=== PATIENT | female | born 1990 | race Caucasian/White ===

== ENCOUNTER 2018-04-20 14:06 | Inpatient (IN) | payer OTHER ==
[~2018-04-20] VITALS: Ht 162.6 cm; Wt 123.9 kg
--- NOTE | ~2018-04-20 | EKG ---
[place], [place] ELECTROCARDIOGRAM REPORT NAME: LUCIA BETHEA UNIT #: [id number] ROOM: 404 DOCTOR: LUISANA DUENAS MD,ALEJANDRO BIRTHDATE: [birth year] DOS: 04/20/2018 TIME: 02:34 p.m. The electrocardiogram shows evidence of sinus tachycardia. The patient has a heart rate of 107 beats per minute. ALEJANDRO LIEBERMAN MD CM:EKGRPT:ELECTROCARDIOGRAM REPORT [id number] ALEJANDRO DUENAS MD
--- NOTE | ~2018-04-20 | CON ---
[place], [place] REPORT OF CONSULTATION NAME: LUCIA BETHEA UNIT #: [id number] ROOM: 404 DOCTOR: ALEJANDRO ROSE MD BIRTHDATE: [birth year] DOS: 04/21/2018 REASON FOR CONSULTATION: Acute abnormal respiratory symptoms. HISTORY OF PRESENT ILLNESS: This is a 27-year-old white female who has been admitted to the hospital on 04/20/2018 with symptoms of shortness of breath with severe cough. The patient has been noted progressive for cough and shortness of breath, but the cough has been described to be white, rather sputum expectoration whitish in color. The patient also complaining of tightness in the chest and wheezing as well. She went to the [facility] for assessment. As the patient was assessed, she was noted with oxygen desaturation hypoxic, sent to the Emergency Room for further medical management. The patient denies any symptoms of chest pain at the present time. The symptoms of shortness of breath and cough has been improving. She was assessed in the Emergency Room, underwent a CT of the chest as well. REVIEW OF SYSTEMS: CONSTITUTIONAL: She does complain of symptoms of fatigue and tiredness. Denies symptoms of fever or chills. EYES: Denies burning, redness, or tenderness. EARS, NOSE, THROAT SYMPTOMS: Denies sore throat, hoarseness, otalgia, postnasal drainage or epistaxis. CARDIOVASCULAR: No angina pain, edema, pain in the lower extremity. GASTROINTESTINAL: Dysphagia, nausea, vomiting, diarrhea, abdominal pain, hematemesis, melena, or hematochezia. GENITOURINARY: No dysuria, suprapubic pain, hematuria. MUSCULOSKELETAL: Denies any symptoms of pain in any joint redness or tenderness. CENTRAL NERVOUS SYSTEM: No dizziness, headache, diplopia, syncopal episodes. Remaining systems were reviewed with the patient, they were noted all negative. PAST MEDICAL HISTORY: 1. The patient was known with past history of tobacco use with recent tobacco cessation. 2. Obesity. 3. History of gastroesophageal reflux. PAST SURGICAL HISTORY: 1. Cleft palate repair. 2. Cholecystectomy. SOCIAL HISTORY: The patient is single, does not have any children. Smoking was noted since early teens half a pack of cigarettes per day, discontinued in 03/2018. FAMILY HISTORY: Father is living, 52 years old, history of diabetes. Mother is 49 years old without any known medical illnesses. HOME MEDICATIONS: None reported. [place], [place] REPORT OF CONSULTATION NAME: LUCIA BETHEA UNIT #: [id number] ROOM: [facility] DOCTOR: ALEJANDRO ROSE MD BIRTHDATE: [birth year] DRUG ALLERGIES: Noted with no known drug allergies. PHYSICAL EXAMINATION: GENERAL: A 27-year-old female who has been currently noted sitting on the bed without any acute distress. Height of 5 feet 4 inches, weight of 273 pounds, BMI 46.6. VITAL SIGNS: Normal temperature, respiratory rate 14-24, heart rate of 123-82 with sinus tachycardia, blood pressure 117/66, 122/85. Intake 2850, output 1000 mL. Pulse ox saturation on room air was 89% saturation on 3 liters nasal cannula 90-91% saturation. HEAD, EYES, EARS, NOSE, AND THROAT: Chronic obesity. Head was atraumatic. Eyes nonicterus. NECK: Supple. CARDIOVASCULAR: S1, S2 is audible. LUNGS: The patient was noted with moderate decreased breath sounds in the lungs bilaterally. No wheezing, no crackles. ABDOMEN: Soft, significantly obese. Bowel sounds present. EXTREMITIES: The patient noted without acute edema, clubbing or cyanosis. SKIN: Visible skin. No lesions or rashes. CENTRAL NERVOUS SYSTEM: Cranial nerves 2-12 intact. MUSCULOSKELETAL: The patient was noted without any acute deformities. LABORATORY DATA: CT of the chest that was done yesterday personally reviewed, does not show evidence of pulmonary embolism, abnormal lymphadenopathy. The patient noted with moderate-sized ground glass area opacity which is present in the left lower lobe in the medial subsegment. There was also noted with a small patchy ground glass opacities, which are present in the right lower lobe, procedure subsegment as well as in the right middle lobe as well. There were no large area of consolidation. IMPRESSION: 1. The patient will be currently admitted to the hospital, it was noted most likely acute viral syndrome resulting in new onset of acute exacerbation of bronchial asthma and chronic obstructive pulmonary disease. 2. Acute hypoxic respiratory secondary to above. 3. History of chronic obesity as well. PLAN OF MANAGEMENT: The patient would be continued on the bronchodilators, oxygen supplementation and the corticosteroids, the dose of corticosteroids will be decreased. The current ground glass opacity need to be monitored as an outpatient followup CT scan in about 4-6 weeks to document the resolution. Ordered the respiratory viral panel as well for the nasopharyngeal swab. Sputum for Gram stain culture will be done. The patient able to produce sputum. Other plan of management and care plan to be continued. Usual care with additional treatment changes to be made based on the progression of the illness. Dose of Solu-Medrol will be gradually decreased as well. Thanks for allowing me to participate in the care of this patient. [place], [place] REPORT OF CONSULTATION NAME: LUCIA BETHEA UNIT #: [id number] ROOM: 404 DOCTOR: ALEJANDRO ROSE MD BIRTHDATE: [birth year] ALEJANDRO LIEBERMAN MD CM:CONSTR:REPORT OF CONSULTATION 1103 04/21/18 1606 interface
--- NOTE | ~2018-04-20 | PR ---
[place], [place] PROGRESS NOTE NAME: LUCIA BETHEA UNIT #: [id number] ROOM: 404 DOCTOR: LUISANA DUENAS MD,ALEJANDRO BIRTHDATE: [birth year] DOS: 04/22/2018 SUBJECTIVE: The patient was noted comfortable at this time. Reduction in shortness of breath symptoms were reported as symptoms of chest pain, hemoptysis, shortness breath, cough and wheezing was all resolving progressively. OBJECTIVE: VITAL SIGNS: Normal temperature, respiratory rate 18, heart rate 56-76, blood pressure 146/66. Pulse oxygen saturation on room air 92% saturation. HEENT: Head was atraumatic. Eyes nonicterus. NECK: Supple. CARDIOVASCULAR: S1, S2 audible. LUNGS: Moderate decreased breath sounds noted in the lungs bilaterally. ABDOMEN: Soft and obese. EXTREMITIES: Without any acute edema. LABORATORY DATA: CBC: WBC count 21.2. Hemoglobin, hematocrit and platelet count was normal. BMP: Glucose 129, BUN and creatinine was normal. IMPRESSION: 1. The patient has been noted currently stable at the present time with progressive resolution of the current acute bronchitis, which would be considered asthmatic bronchitis. 2. Acute hypoxic respiratory failure as well, that has improved markedly. PLAN OF MANAGEMENT: Consideration for home discharge from the pulmonary standpoint on oral antibiotic, tapering prednisone and bronchodilators with further outpatient assessment to be done for the current ground glass opacities in the lungs until resolution. ALEJANDRO LIEBERMAN MD CM:PNTRANS [id number] ALEJANDRO DUENAS MD 04/28/18 0744 interface
[~2018-04-20 14:06] MED LIST: KEFLEX500 M1 PO; ORTHO TRI-CYCLE1 TA2 PO
[2018-04-20 14:07] VITALS: BP 152/82
[2018-04-20 15:11] VITALS: BP 122/85
[2018-04-20 15:19] LABS: BASO % 0.2 % (0.0-1.0); EOS # 0.4 10*3/uL (0.0-0.4); EOS % 2.6 % (1.0-4.0); HEMATOCRIT 42.8 % (37.0-47.0); HEMOGLOBIN 14.3 g/dl (12.0-16.0); LYMPH # 1.9 10*3/uL (1.3-4.4); LYMPH % 11.8 % (27.0-41.0); MEAN CELL VOLUME 86.3 fl (81.0-99.0); MEAN CORPUSCULAR HGB 28.8 pg (27.0-31.0); MEAN CORPUSCULAR HGB CONC 33.4 g/dl (33.0-37.0); MEAN PLATELET VOLUME 9.9 fl (9.6-12.3); MONO # 0.9 10*3/uL (0.1-1.0); MONO % 5.4 % (3.0-9.0); NEUT # 12.9 10*3/uL (2.3-7.9); NEUT % 79.6 % (47.0-73.0); PLATELET COUNT AUTOMATED 321 10*3/uL (130-400); RED BLOOD COUNT 4.96 10*6/uL (4.10-5.10); RED CELL DISTRI WIDTH 12.4 % (0-14.5); WHITE BLOOD COUNT 16.3 10*3/uL (4.8-10.8)
[2018-04-20 15:29] LABS: ACT PARTIAL THROMBO TIME 27.2 SECONDS (20.8-31.5)
[2018-04-20 15:35] LABS: ALBUMIN 4.1 gm/dl (3.1-4.5); ALKALINE PHOSPHATASE 71 U/L (45-117); BUN 9 mg/dl (7-24); CHLORIDE 106 mmol/L (98-107); CREATININE 0.91 mg/dL (0.55-1.02); LIPASE 124 U/L (73-393); POTASSIUM 3.8 mmol/L (3.5-5.1); SGOT/AST 22 IU/L (3-35); SGPT/ALT 26 U/L (12-78); SODIUM 139 mmol/L (136-145)
[2018-04-20 15:37] VITALS: BP 124/72
[2018-04-20 15:44] LABS: TROPONIN I < 0.015 ng/ml (<0.045)
[2018-04-20 17:47] VITALS: BP 128/72
[2018-04-20 19:17] VITALS: BP 122/71
[2018-04-20 19:50] VITALS: BP 121/69
[2018-04-21] VITALS: BP 117/66
[2018-04-21 06:32] LABS: BASO % 0.2 % (0.0-1.0); HEMATOCRIT 40.4 % (37.0-47.0); HEMOGLOBIN 13.3 g/dl (12.0-16.0); LYMPH # 1.3 10*3/uL (1.3-4.4); MEAN CELL VOLUME 87.8 fl (81.0-99.0); MEAN CORPUSCULAR HGB 28.9 pg (27.0-31.0); MEAN CORPUSCULAR HGB CONC 32.9 g/dl (33.0-37.0); MEAN PLATELET VOLUME 10.1 fl (9.6-12.3); MONO # 0.3 10*3/uL (0.1-1.0); MONO % 2.6 % (3.0-9.0); NEUT # 11.1 10*3/uL (2.3-7.9); NEUT % 86.5 % (47.0-73.0); PLATELET COUNT AUTOMATED 302 10*3/uL (130-400); RED CELL DISTRI WIDTH 12.6 % (0-14.5); WHITE BLOOD COUNT 12.8 10*3/uL (4.8-10.8)
[2018-04-21 06:50] LABS: ALBUMIN 3.5 gm/dl (3.1-4.5); BUN 8 mg/dl (7-24); CHLORIDE 109 mmol/L (98-107); CHOLESTEROL 152 mg/dL (<200); CREATININE 0.72 mg/dL (0.55-1.02); PHOSPHOROUS 2.6 mg/dL (2.5-4.9); POTASSIUM 3.8 mmol/L (3.5-5.1); SGOT/AST 20 IU/L (3-35); SGPT/ALT 25 U/L (12-78); SODIUM 140 mmol/L (136-145)
[2018-04-21 06:58] LABS: ALKALINE PHOSPHATASE 59 U/L (45-117); HDL CHOLESTEROL 42 mg/dl (40-60); LDL CHOLESTEROL 96 mg/dL (9-159); THYROID STIM HORMONE (HS) 0.313 uIU/ml (0.358-4.75); TOTAL PROTEIN 7.3 gm/dL (6.4-8.2); TRIGLYCERIDES 71 mg/dl (<150); VLDL CHOLESTEROL 14 mg/dL (6-40)
[2018-04-21 07:39] LABS: VITAMIN D, 25-HYDROXY 15.7 ng/mL (30-100)
[2018-04-21 08:00] VITALS: BP 138/55
[2018-04-21 12:00] VITALS: BP 132/54
[2018-04-21 16:00] VITALS: BP 107/65
[2018-04-21 20:00] VITALS: BP 110/44
[2018-04-22 00:09] VITALS: BP 105/45
[2018-04-22 07:48] LABS: BASO % 0.2 % (0.0-1.0); HEMATOCRIT 41.6 % (37.0-47.0); HEMOGLOBIN 13.5 g/dl (12.0-16.0); LYMPH # 2.8 10*3/uL (1.3-4.4); LYMPH % 13.1 % (27.0-41.0); MEAN CELL VOLUME 89.1 fl (81.0-99.0); MEAN CORPUSCULAR HGB 28.9 pg (27.0-31.0); MEAN CORPUSCULAR HGB CONC 32.5 g/dl (33.0-37.0); MEAN PLATELET VOLUME 10.3 fl (9.6-12.3); MONO # 1.1 10*3/uL (0.1-1.0); MONO % 5.2 % (3.0-9.0); NEUT # 17.1 10*3/uL (2.3-7.9); NEUT % 80.7 % (47.0-73.0); PLATELET COUNT AUTOMATED 365 10*3/uL (130-400); RED BLOOD COUNT 4.67 10*6/uL (4.10-5.10); RED CELL DISTRI WIDTH 12.9 % (0-14.5); WHITE BLOOD COUNT 21.2 10*3/uL (4.8-10.8)
[2018-04-22 07:59] LABS: BUN 12 mg/dl (7-24); CHLORIDE 107 mmol/L (98-107); CREATININE 1.02 mg/dL (0.55-1.02); PHOSPHOROUS 3.4 mg/dL (2.5-4.9); POTASSIUM 3.7 mmol/L (3.5-5.1); SODIUM 141 mmol/L (136-145)
[2018-04-22 08:00] VITALS: BP 146/66
[2018-04-22 12:00] VITALS: BP 121/61
[2018-04-22] MEDS ORDERED: LEVAQUIN500 M2 PO (14:17)
[2018-04-22] MEDS ORDERED: PREDNISONE10 MG PO (14:17)
[2018-04-22] MEDS ORDERED: VITAMIN D-32000 UNI1 PO (14:20)
[2018-04-24 00:07] LABS: ADENOVIRUS Negative (Negative); INFLUENZA A Negative (Negative); INFLUENZA B Negative (Negative); METAPNEUMOVIRUS Negative (Negative); PARAINFLUENZA 1 Negative (Negative); PARAINFLUENZA 2 Negative (Negative); PARAINFLUENZA 3 Negative (Negative); RHINOVIRUS Negative (Negative); RSV A Negative (Negative); RSV B Negative (Negative)
== END 2018-04-22 15:27 | disposition home or self-care (01) | DRG 871 ==
LOC: ED 14:06 → EDHOLD 18:50 → 4E 18:50
PROVIDERS: Internal Medicine; Internal Medicine Critical Care Medicine; Nurse Practitioner Family
DX: A41.9 Sepsis, unspecified organism (principal); J18.9 Pneumonia, unspecified organism; J96.01 Acute respiratory failure with hypoxia; E66.01 Morbid (severe) obesity due to excess calories; J45.901 Unspecified asthma with (acute) exacerbation; Z68.42 Body mass index [BMI] 45.0-49.9, adult; R03.0 Elevated blood-pressure reading, without diagnosis of hypertension; R79.82 Elevated C-reactive protein (CRP); K21.9 Gastro-esophageal reflux disease without esophagitis; F17.210 Nicotine dependence, cigarettes, uncomplicated; J20.9 Acute bronchitis, unspecified; E55.9 Vitamin D deficiency, unspecified; J44.9 Chronic obstructive pulmonary disease, unspecified; Z79.899 Other long term (current) drug therapy; Z90.49 Acquired absence of other specified parts of digestive tract; Z83.3 Family history of diabetes mellitus

== ENCOUNTER 2018-07-19 14:12 | Emergency (ER) | payer SELFPAY ==
[~2018-07-19] VITALS: Ht 162.5 cm; Wt 122.5 kg
[~2018-07-19 14:12] MED LIST changes: +LEVAQUIN500 M2 PO; +PREDNISONE10 MG PO; +VITAMIN D-32000 UNI1 PO
[2018-07-19] MEDS ORDERED: BENADRYL25 M2 PO (15:27)
== END 2018-07-19 17:53 | disposition home or self-care (01) ==
LOC: ED 14:12
DX: T78.1XXA Other adverse food reactions, not elsewhere classified, initial encounter (principal); R11.0 Nausea; Z87.891 Personal history of nicotine dependence; X58.XXXA Exposure to other specified factors, initial encounter

== ENCOUNTER 2018-08-14 11:43 | Emergency (ER) | payer SELFPAY ==
[~2018-08-14] VITALS: Ht 162.5 cm; Wt 122.5 kg
[~2018-08-14 11:43] MED LIST changes: +BENADRYL25 M2 PO
[2018-08-14 12:09] LABS: BASO # 0.1 10*3/uL (0.0-0.1); BASO % 0.8 % (0.0-1.0); EOS # 0.6 10*3/uL (0.0-0.4); HEMATOCRIT 41.6 % (37.0-47.0); HEMOGLOBIN 14.4 g/dl (12.0-16.0); LYMPH # 1.9 10*3/uL (1.3-4.4); LYMPH % 18.6 % (27.0-41.0); MEAN CORPUSCULAR HGB 29.1 pg (27.0-31.0); MEAN CORPUSCULAR HGB CONC 34.6 g/dl (33.0-37.0); MEAN PLATELET VOLUME 10.2 fl (9.6-12.3); MONO # 0.7 10*3/uL (0.1-1.0); MONO % 6.8 % (3.0-9.0); NEUT % 67.6 % (47.0-73.0); PLATELET COUNT AUTOMATED 376 10*3/uL (130-400); RED BLOOD COUNT 4.95 10*6/uL (4.10-5.10); RED CELL DISTRI WIDTH 12.9 % (0-14.5); WHITE BLOOD COUNT 10.4 10*3/uL (4.8-10.8)
[2018-08-14 12:23] LABS: ALBUMIN 3.8 gm/dl (3.1-4.5); ALKALINE PHOSPHATASE 76 U/L (45-117); BUN 6 mg/dl (7-24); CHLORIDE 106 mmol/L (98-107); POTASSIUM 3.4 mmol/L (3.5-5.1); SGOT/AST 16 IU/L (3-35); SGPT/ALT 25 U/L (12-78); SODIUM 141 mmol/L (136-145); TOTAL PROTEIN 7.8 gm/dL (6.4-8.2)
[2018-08-14] MEDS ORDERED: PROAIR HFA8.5 GM INH (13:26)
[2018-08-14] MEDS ORDERED: PREDNISONE10 MG PO (13:26)
[2018-08-14] MEDS ORDERED: LEVAQUIN750 M1 PO (13:26)
== END 2018-08-14 13:30 | disposition home or self-care (01) ==
LOC: ED 11:43
PROVIDERS: Nurse Practitioner Family
DX: J18.9 Pneumonia, unspecified organism (principal); K21.9 Gastro-esophageal reflux disease without esophagitis; E66.9 Obesity, unspecified; Z90.49 Acquired absence of other specified parts of digestive tract; Z87.891 Personal history of nicotine dependence

== ENCOUNTER 2019-12-18 17:02 | Emergency (ER) | payer OTHER ==
[~2019-12-18] VITALS: Ht 162.5 cm; Wt 90.7 kg
[~2019-12-18 17:02] MED LIST changes: +LEVAQUIN750 M1 PO; +PROAIR HFA8.5 GM INH
== END 2019-12-18 18:06 | disposition home or self-care (01) ==
LOC: ED 17:02
DX: S05.01XA Injury of conjunctiva and corneal abrasion without foreign body, right eye, initial encounter (principal); F17.200 Nicotine dependence, unspecified, uncomplicated; Z79.899 Other long term (current) drug therapy; W22.8XXA Striking against or struck by other objects, initial encounter; Y93.89 Activity, other specified; Y92.89 Other specified places as the place of occurrence of the external cause; Y99.0 Civilian activity done for income or pay